=== PATIENT | male | born 1970 | race Asian ===

== ENCOUNTER 2019-09-08 23:49 | Inpatient (IN) | payer SELFPAY ==
[~2019-09-08] VITALS: Ht 165.1 cm; Wt 70.8 kg
[2019-09-09 00:57] LABS: Basophils # (auto) 0.1 uL; Basophils % (auto) 0.5 % (0.0-2.0); Eosinophils # (auto) 0.1 uL; Hemoglobin 18.1 g/dL (13.5-17.5); Lymphocytes # (auto) 1.3 uL; Monocytes # (auto) 0.5 uL; White Blood Cell 12.1 10^3/uL (4.4-10.8)
[2019-09-09 00:59] LABS: Hematocrit 52.1 % (41.0-53.0); Lymphocytes % (auto) 10.5 % (10.0-50.0); Mean Corpuscular Hemoglobin 31.6 pg (28.0-32.0); Mean Corpuscular Hgb Conc. 34.8 g/dL (32.0-36.0); Mean Corpuscular Volume 90.7 fL (80.0-100.0); Neutrophils # (auto) 10.2 uL; Platelet Count (auto) 178 10^3/uL (140-450); Red Blood Cells 5.75 10^6/uL (4.5-5.90); Red Cell Distribution Width 12.9 % (11.8-14.3)
[2019-09-09 01:05] LABS: Nucleated Red Blood Cells % 4.2 %
[2019-09-09 01:16] LABS: Albumin 4.6 g/dL (3.4-5.0); Calcium 9.9 mg/dL (8.5-10.1); Magnesium 2.6 mg/dL (1.6-2.6); Potassium 3.8 mmol/L (3.5-5.1)
[2019-09-09 01:29] LABS: Total Protein 8.2 g/dL (6.4-8.2)
[2019-09-09 02:14] LABS: Urine Bacteria FEW /hpf (None Seen); Urine Blood Negative /uL (Negative); Urine Hyaline Cast MANY /lpf (0 - 2); Urine Mucus MANY (None Seen); Urine Specific Gravity 1.029 (1.001-1.035); Urine WBC 5 /hpf (0 - 3)
[2019-09-09] MEDS ORDERED: metroNIDAZOLE 500MG/100ML 100 ML IV ONE (08:00)
[2019-09-09] MEDS ORDERED: SODIUM CHLORIDE 0.9% 1,000 ML IV ONE ×5 (08:04→10:15)
[2019-09-09] MEDS ORDERED: SODIUM CHLORIDE 0.9% 1,000 ML IV SCH ×3 (08:40→17:00)
[2019-09-09] MEDS ORDERED: FAMOTIDINE (10MG/ML) 2ML VL IV SCH ×2 (08:45→09:15)
[2019-09-09] MEDS ORDERED: NITROGLYCERIN 0.4 MG SL TAB SL PRN ×2 (08:45→09:15)
[2019-09-09] MEDS ORDERED: MORPHINE SULF INJ 2 MG/ML SYRINGE 1ML IV PRN ×2 (08:45→09:15)
[2019-09-09] MEDS ORDERED: cefTRIAXone 1GM/50ML D5W 50 ML IV ONE ×2 (08:45→09:15)
[2019-09-09] MEDS ORDERED: MORPHINE SULFATE 4 MG/ML SYR/VIAL IV PRN ×4 (08:45→09:15)
[2019-09-09] MEDS ORDERED: cefTRIAXone 1GM/50ML D5W 50 ML IV SCH (09:00)
[2019-09-09] MEDS ORDERED: PROMETHAZINE HCL 25 MG/ML 1ML IV PRN (09:15)
[2019-09-09] MEDS ORDERED: ENOXAPARIN SOD 40 MG/0.4 ML SYRINGE SC SCH (10:00)
[2019-09-09] MEDS ORDERED: GASTROGRAFIN 120 ML SOL ONE (10:28)
[2019-09-09 11:16] VITALS: BP 103/79
--- NOTE | 2019-09-09 13:54 | NUR ---
WALKED INTO PATIENTS ROOM AND PATIENT DRINKING WATER. PATIENT STATED HE DID NOT WANT TO CONTINUE WITH THE SERIES ANYMORE. PATIENT DENIES ANY NAUSEA OR VOMITING. BOWEL SOUNDS STILL GOOD. PATIENT REPORTS BOWEL MOVEMENTS X3.
[2019-09-09] MEDS ORDERED: metroNIDAZOLE 500MG/100ML 100 ML IV SCH ×2 (14:00)
[2019-09-09] MEDS ORDERED: METR500T PO (15:12)
[2019-09-09] MEDS ORDERED: LEVO-28 PO (15:12)
--- NOTE | 2019-09-09 15:34 | NUR ---
PATIENT PROVIDED WITH SANDWICH. PATIENT TOLERATED JELLO EARLIER WELL. NO NAUSEA OR VOMITING AT THIS TIME.
--- NOTE | 2019-09-09 16:09 | NUR ---
REGARDING INSURANCE: SPOKE TO VALERIANO FIELDS AND PATIENT WAS PROVIDED WITH NUMBER TO CALL TO HELP SET UP INSURANCE AND URGENT CARE LOCATIONS.
--- NOTE | 2019-09-09 16:20 | NUR ---
PATIENT DENIES ANY NAUSEA OR VOMITING AFTER EATING SANDWICH.
--- NOTE | 2019-09-09 16:32 | NUR ---
Discharge instructions given as ordered. Encourage to follow up with PMD as instructed. Provided with antibiotics from pharmacy and instructed on how to take medication per orders. All questions and concerns addressed. Patient verbalized understanding. IV removed with catheter intact, pressure dressing applied. Telemetry unit returned to ICU. Patient taken to vehicle via wheelchair with all personal belongings, accompanied by staff and family member. No distress noted at time of departure.
[2019-09-09 17:00] VITALS: BP 109/73
[2019-09-10] MEDS ORDERED: cefTRIAXone 1GM/50ML D5W 50 ML IV SCH (09:00)
== END 2019-09-09 16:32 | disposition home or self-care (01) | DRG 392 ==
LOC: ER 23:56 → TELE 23:57 → TELE-WESTW 09-09 10:20
PROVIDERS: ADMIT Internal Medicine; ATTEND Internal Medicine
DX: K52.9 Noninfective gastroenteritis and colitis, unspecified (principal); K56.7 Ileus, unspecified; E86.0 Dehydration; K31.89 Other diseases of stomach and duodenum; R73.9 Hyperglycemia, unspecified; Z79.899 Other long term (current) drug therapy
CPT/HCPCS: 36415; 74176; 74250; 80053; 81001; 82150; 83605; 83690; 83735; 85025; 87086; G0378; J0696; J3490